=== PATIENT | female | born 1990 | race Caucasian/White ===

== ENCOUNTER 2017-02-16 10:12 | Emergency (ER) | payer OTHER ==
[~2017-02-16] VITALS: Wt 49.6 kg
[2017-02-16] MEDS ORDERED: AMOX500C2 PO (11:25)
--- NOTE | 2017-02-16 11:33 | ERD ---
ER Documentation Chief Complaint Chief Complaint COUGH, CONGESTION, THROAT PAIN HPI 26-year-old female presents with a chief complaints of pharyngitis and congestion. Further history reveals no cough. Ibuprofen and Tylenol with minimal to moderate relief. Sick contacts are heard 2 children who have the same symptoms. Describes subjective fever. Denies difficulty breathing, dysphagia, change in voice, drooling, fatigue, oral swelling, ear pain, or meningismus. Patients vaccination status is up to date. Patient has no other complaints and describes no other associated manifestations. ROS All systems reviewed and are negative except as per history of present illness. Medications Home Meds Active Scripts Amoxicillin* (Amoxicillin*) 500 Mg Cap, 500 MG PO TID for 10 Days, CAP Prov:BOB ALBARADO PA-C 02/16/17 Allergies Allergies: Coded Allergies: No Known Allergy (Unverified , 02/16/17) PMhx/Soc Medical and Surgical Hx: pt denies Medical Hx, pt denies Surgical Hx Hx Alcohol Use: No Hx Substance Use: No Hx Tobacco Use: No Physical Exam Vitals Vital Signs Date Time Temp Pulse Resp B/P Pulse Ox O2 Delivery O2 Flow Rate FiO2 02/16/17 10:20 98.3 79 18 105/58 99 Physical Exam Const: Healthy-appearing, well-nourished, well-developed, no acute distress. Throat: Erythematous oropharynx with exudates visualized bilaterally and tonsils enlarged. Moist mucous membranes. Neck: Tender anterior cervical lymphadenopathy palpated bilaterally. No posterior cervical lymphadenopathy, masses or goiter palpated. Trachea midline. Full range of motion. Supple. ~ No meningismus. Skin: No petechiae or rashes. No ulcer, induration, jaundice. Good turgor. Resp: No dyspnea, stridor, tripoding or drooling. Good air movement. Clear to auscultation bilaterally. Head: Normocephalic, Atraumatic. Eyes: Non-injected; No scleral erythema, discharge or foreign body. EOMI bilaterally. PERRLA. Ears: Normal External Ears, EACs clear, TM normal bilaterally without erythema. Nose: Normal nose without discharge, septal deviation, or sinus tenderness. Cardio: Regular rate and rhythm; No murmurs, gallops or rubs auscultated. No JVD grossly observed. Radial and posterior tibial pulses 2+ bilaterally. Capillary refill less than 2 seconds. Abd: Soft, non tender, non distended. No guarding, masses. Normal bowel sounds. No McBurney's point tenderness. MS: Normal motor strength, normal tone with gross examination. Back: No midline, flank or CVA tenderness. Ext: No cyanosis, edema or palpable cord. Normal movement of all extremities grossly observed. Neur: Awake, alert and oriented x3. Neurovascularly intact bilaterally. Psych: Normal Mood and Affect. Procedures/MDM Patient was evaluated and worked up for pharyngitis presenting as described in the history and physical exam. The patient has a [place] Criteria of 4 out of 5. The current most likely diagnosis is group B strep pharyngitis VS viral pharyngitis. The treatment plan will thus include out-patient antibiotics and supportive measures. At this time I do not suspect diphtheria, Sophia-[place] virus, peritonsillar abscess, epiglottitis, retropharyngeal abscess, parapharyngeal abscess, or allergic reaction. I no longer have suspicion for endangerment of the airway. I have spoke with the patients regarding their condition and future management. They have verbally responded that they understand and agree with their status and treatment plan. The patients vitals are stable, and their current condition is appropriate for discharge. The patient will be given discharge instructions with return precautions. Departure Diagnosis: Primary Impression: Strep pharyngitis Additional Impression: Strep sore throat Condition: Stable Patient Instructions: Treating Group B Strep Additional Instructions: Yolanda un seguimiento con cutler PCP dentro de los prximos 1-3 cortez para mauro evaluaci n ms completa y mauro posible derivacin a un especialista. Devuelva el departamento de emergencia inmediatamente si los sntomas empeoran o cambian. Si tiene alguna pregunta con respecto a los medicamentos, consulte con cutler farmac utico o con nosotros antes de salir. Si se producen reacciones adversas mientras mariel david medicamentos, suspenda el tratamiento y regrese inmediatamente al servicio de urgencias. [place] david medicamentos segn las indicaciones y complete el curso completo del tratamiento. BOB ALBARADO PA-C Feb 16, 2017 11:33
== END 2017-02-16 12:15 | disposition home or self-care (01) ==
LOC: FTE 10:12
DX: J02.0 Streptococcal pharyngitis (principal)
CPT/HCPCS: 99283

== ENCOUNTER 2017-03-23 11:01 | Emergency (ER) | END 2017-03-23 12:32 | disposition home or self-care (01) ==

== ENCOUNTER 2017-05-23 09:40 | Emergency (ER) | END 2017-05-23 15:00 | disposition home or self-care (01) ==

== ENCOUNTER 2017-07-31 11:05 | Emergency (ER) | END 2017-07-31 14:51 | disposition home or self-care (01) ==

== ENCOUNTER 2017-08-29 17:51 | Outpatient (CLI) | END 2017-08-29 18:59 | disposition home or self-care (01) ==

== ENCOUNTER 2017-09-04 20:16 | Outpatient (CLI) | END 2017-09-04 23:28 | disposition home or self-care (01) ==

== ENCOUNTER 2017-10-09 12:02 | Outpatient (CLI) | END 2017-10-09 15:10 | disposition home or self-care (01) ==

== ENCOUNTER 2017-10-31 14:36 | Outpatient (CLI) | END 2017-10-31 17:10 | disposition home or self-care (01) ==

== ENCOUNTER 2017-11-25 22:50 | Outpatient (CLI) | END 2017-11-26 01:40 | disposition home or self-care (01) ==

== ENCOUNTER 2017-12-20 19:37 | Outpatient (CLI) | END 2017-12-20 23:08 | disposition home or self-care (01) ==

== ENCOUNTER 2017-12-27 03:00 | Inpatient (IN) | END 2017-12-29 14:55 | disposition home or self-care (01) | DRG 807 ==

== ENCOUNTER 2018-06-12 08:40 | Emergency (ER) | payer OTHER ==
[~2018-06-12] VITALS: Wt 67.0 kg
[~2018-06-12 08:40] MED LIST: FERR134T PO; PREN-93 PO
[2018-06-12 08:47] VITALS: BP 127/67; PULSE 98
[2018-06-12] MEDS ORDERED: ACET325T33 PO (09:16)
[2018-06-12] MEDS ORDERED: IBUP-1542 PO (09:16)
[2018-06-12] MEDS ORDERED: FLUT9.9S NASAL (09:16)
[2018-06-12 09:35] VITALS: RESP 18
--- NOTE | 2018-06-12 12:43 | ERD ---
ER Documentation Chief Complaint Chief Complaint flu since last nightt,body acjhes, chill, cough HPI Patient is a 28-year-old female with no medical problems who presents with multiple complaints. She said that she has fevers, sore throat, headache, ear pain, and whole body pain. She said the symptoms started 2 days ago. She tried Tylenol. She did get a flu shot this year. Upon review of old medical record the patient has multiple visits for various complaints. She does not currently have a primary doctor. ROS All systems reviewed and are negative except as per history of present illness. Medications Home Meds Active Scripts Acetaminophen* (Tylenol*) 325 Mg Tablet, 2 TAB PO Q8 PRN for PAIN AND OR ELEVATED TEMP, #20 TAB Prov:FRANSISCO BARNETT MD 06/12/18 Ibuprofen* (Motrin*) 600 Mg Tab, 600 MG PO Q8 PRN for PAIN AND OR ELEVATED TEMP, #30 TAB Prov:FRANSISCO BARNETT MD 06/12/18 Fluticasone Propionate (Flonase Allergy Relief) 9.9 Ml [place].susp, 1 SPRAY NASAL DAILY, #1 BOTTLE TO EACH NOSTRIL Prov:FRANSISCO BARNETT MD 06/12/18 Vit No.124/Iron/FA ( Vitamin Tablet) 1 Each Tablet, 1 EACH PO DAILY, #30 TAB Prov:JAMAL DIAZ 05/23/17 Reported Medications Ferrous Sulfate (Iron) 134 Mg Tablet, 134 MG PO DAILY, TAB 12/20/17 Allergies Allergies: Coded Allergies: No Known Drug Allergies (Verified Allergy, Unknown, 12/27/17) PMhx/Soc Medical and Surgical Hx: pt denies Medical Hx, pt denies Surgical Hx Hx Alcohol Use: No Hx Substance Use: No Hx Tobacco Use: No Smoking Status: Never smoker FmHx Family History: diabetes Physical Exam Vitals Vital Signs Date Temp Pulse Resp B/P (MAP) Pulse Ox O2 O2 Flow FiO2 Time Delivery Rate 06/12/18 18 98 Room Air 09:35 06/12/18 98.2 98 18 127/67 99 08:47 (87) Physical Exam Const: No acute distress Head: Atraumatic Eyes: Normal Conjunctiva ENT: Normal External Ears, Nose and Mouth. Neck: Full range of motion. No meningismus. Resp: Clear to auscultation bilaterally Cardio: Regular rate and rhythm, no murmurs Abd: Soft, non tender, non distended. Normal bowel sounds Skin: No petechiae or rashes Back: No midline or flank tenderness Ext: No cyanosis, or edema Neur: Awake and alert Psych: Normal Mood and Affect Results 24 hrs Laboratory Tests Test 06/12/18 09:17 POC Beta HCG, Qualitative NEGATIVE Procedures/MDM Patient is a 28-year-old female presents with multiple complaints. Symptoms are consistent with a viral illness and upper respiratory infection. I do not believe the patient requires further workup or admission in the hospital. I believe outpatient management is appropriate but the patient will need to follow-up closely with a primary doctor within 1 week. She can return for any worsening symptoms. She will be given information for Dr. Gregory. Departure Diagnosis: Primary Impression: Upper respiratory infection URI type: unspecified URI Qualified Codes: J06.9 - Acute upper respiratory infection, unspecified Condition: Fair Patient Instructions: Uri, Viral, No Abx (Adult) Referrals: MARIBEL GREGORY Additional Instructions: Llame al doctor casandra abreu (Referral Sources) MAANA y rebecca mauro JESSA PARA DENTRO DE MAURO SEMANA. Dgale a la secretaria que nosotros le instruimos hacer esta jessa.Avise o llame si cutler condicin se empeora antes de la jessa. FRANSISCO BARNETT MD Jun 12, 2018 12:43
== END 2018-06-12 09:45 | disposition home or self-care (01) ==
LOC: E/R 08:40
DX: J06.9 Acute upper respiratory infection, unspecified (principal)
CPT/HCPCS: 81025; Z7502; 99282

== ENCOUNTER 2018-09-07 14:59 | Emergency (ER) | payer OTHER ==
[~2018-09-07] VITALS: Ht 157.5 cm; Wt 51.9 kg
[~2018-09-07 14:59] MED LIST changes: +ACET325T33 PO; +FLUT9.9S NASAL; +IBUP-1542 PO
[2018-09-07 15:13] VITALS: BP 109/104; PULSE 66; RESP 16; Ht 157.5 cm; Wt 51.9 kg
[2018-09-07] MEDS ORDERED: D-ME118S24 PO (16:18)
[2018-09-07] MEDS ORDERED: ACET-141 PO (16:18)
--- NOTE | 2018-09-07 16:19 | ERD ---
ER Documentation Chief Complaint Chief Complaint SORETHROAT & MYALGIA X4 DAYS HPI 28-year-old female no significant past medical history presents for sore throat and body aches x3 days. She states that she also has cough. She states that the cough is dry. Denies any fevers or chills. Denies chest pain or shortness of breath. The body ache is diffuse. eating drinking normally. No other modifying factors noted, no treatments tried at home. ROS All systems reviewed and are negative except as per history of present illness. Medications Home Meds Active Scripts Acetaminophen* (Acetaminophen*) 500 MG Extra Strength Tablet, 500 MG PO Q4H PRN for PAIN AND OR ELEVATED TEMP, #30 TAB Prov:PAPABOB 09/07/18 D-Methorphan Hb/P-Epd HCl/Bpm (Lrcoeivpid-Dbdqyuejlhm-Eg Syr) 118 Ml Syrup, 5 ML PO Q4H PRN for COUGH for 10 Days, #1 BOTTLE Prov:BOB ELAM DO 09/07/18 Acetaminophen* (Tylenol*) 325 Mg Tablet, 2 TAB PO Q8 PRN for PAIN AND OR ELEVATED TEMP, #20 TAB Prov:FRANSISCO BARNETT MD 06/12/18 Ibuprofen* (Motrin*) 600 Mg Tab, 600 MG PO Q8 PRN for PAIN AND OR ELEVATED TEMP, #30 TAB Prov:FRANSISCO BARNETT MD 06/12/18 Fluticasone Propionate (Flonase Allergy Relief) 9.9 Ml [place].susp, 1 SPRAY NASAL DAILY, #1 BOTTLE TO EACH NOSTRIL Prov:FRANSISCO BARNETT MD 06/12/18 Vit No.124/Iron/FA ( Vitamin Tablet) 1 Each Tablet, 1 EACH PO DAILY, #30 TAB Prov:JAMAL DIAZ F 05/23/17 Reported Medications Ferrous Sulfate (Iron) 134 Mg Tablet, 134 MG PO DAILY, TAB 12/20/17 Allergies Allergies: Coded Allergies: No Known Drug Allergies (Verified Allergy, Unknown, 12/27/17) PMhx/Soc Medical and Surgical Hx: pt denies Medical Hx, pt denies Surgical Hx Hx Alcohol Use: No Hx Substance Use: No Hx Tobacco Use: No Smoking Status: Never smoker FmHx Family History: No coronary disease Physical Exam Vitals Vital Signs Date Temp Pulse Resp B/P (MAP) Pulse Ox O2 O2 Flow FiO2 Time Delivery Rate 09/07/18 98.3 66 16 109/104 59 15:13 (106) Physical Exam Const: No acute distress Head: Atraumatic Eyes: Normal Conjunctiva ENT: Normal External Ears, bilateral tympanic membrane intact without erythema or bulging noted, nose and Mouth examination normal, no tonsillar s welling or exudate noted Neck: Full range of motion. No meningismus. Resp: Clear to auscultation bilaterally, no wheezing, rales, rhonchi Cardio: Regular rate and rhythm, no murmurs Skin: No petechiae or rashes Ext: No cyanosis, or edema Neur: Awake and alert Psych: Normal Mood and Affect Procedures/MDM Medical Decision Making: Differential diagnosis includes but not limited to upper respiratory infection, pneumonia, sepsis, meningitis, influenza. Patient appeared well on physical examination, nontoxic appearing. Lungs were clear to auscultation bilaterally. There is low suspicion for pneumonia, sepsis, meningitis. Patient likely has an upper respiratory infection, likely viral. Therefore antibiotics not indicated. Discussed symptomatic treatment with patient who agrees with plan. Patient given prescription for supportive medication(s). Patient advised to follow up with PCP in 1-2 days. Patient advised to return to ED for new or worsening symptoms. Patient stable on discharge from the ED. Disclaimer: Inadvertent spelling and grammatical errors are likely due to EHR/dictation software use and do not reflect on the overall quality of patient care. Also, please note that the electronic time recorded on this note does not necessarily reflect the actual time of the patient encounter. Departure Diagnosis: Primary Impression: Sore throat Additional Impression: Cough Condition: Fair Patient Instructions: Self-Care for Sore Throats, Preventing Common Respiratory Infections Additional Instructions: Llame al doctor MAANA y rebecca mauro JESSA PARA DENTRO DE 1-2 MIMS.Dgale a la sec retaria que nosotros le instruimos hacer esta jessa.Avise o llame si cutler condicin se empeora antes de la jessa. Regresa aqui si peor o no mejor. BOB ELAM DO Sep 07, 2018 16:19
== END 2018-09-07 16:34 | disposition home or self-care (01) ==
LOC: FTE 14:59
DX: J02.9 Acute pharyngitis, unspecified (principal)
CPT/HCPCS: 99283